=== PATIENT | female | born 1955 | race Caucasian/White ===

== ENCOUNTER 2017-02-19 07:49 | Outpatient (CLI) | payer BC ==
--- NOTE | 2017-02-19 10:49 | CT ---
CT ABDOMEN AND PELVIS WITH IV CONTRAST: Date: 02/19/17 HISTORY: Parastomal hernia. History of colorectal cancer. Patient is having pain around colostomy site. Patien t is post chemotherapy and radiation. COMPARISON: 09/21/16. FINDINGS: Lung bases are clear without evidence of a pulmonary nodule. The liver, spleen, pancreas, bilateral a drenal glands, kidneys, abdominal aorta, and urinary bladder demonstrate a normal CT appearance. There is evidence of hysterectomy. Left lower quadrant colostomy is present. There is abdominal wall defect at the ostomy site, which ag ain is larger in size compared to the prior study, previously measuring 3.5 cm in maximal dimensions, and now measures 4.6 cm in transverse dimension. Loops of small bowel now extend into this defect wi thout evidence of a bowel obstruction. There is no fluid or fluid collection within the ostomy site h ernia. A stable area of fat necrosis is seen adjacent to the descending colon. There is evidence of hysterectomy. Cecum extends into the lowermost pelvis and there are postsurgical changes in the pelvis related to partial colectomy of the sigmoid colon as well as rectum. There is no evidence of lymphadenopathy. Subcutaneous edema in the soft tissues of the anterior abdomen are no longer visualized. There is sca rring in the anterior subcutaneous soft tissues in the infraumbilical region. There are prominent degenerative changes in the lumbar spine with posterior osteophyte formation vers us calcification of longitudinal ligaments at multiple levels, findings greatest at the L1-2 level wh ere there is a prominent central calcification resulting in what appears to be severe narrowing of th e central spinal canal. Similar finding is seen at the L2-3, as well as the L3-4 levels. However, thi s is stable from prior exam. IMPRESSION: 1. No acute findings in the abdomen or pelvis. 2. Left lower quadrant colostomy. The colostomy site defect is larger in size and loops of small bow el now extend into the defect, but there is no evidence of a bowel obstruction. 3. Postsurgical changes related to hysterectomy, as well as removal of the rectum. 4. No evidence of lymphadenopathy. 5. Prominent degenerative changes in the lumbar spine. POS: [facility]
== END 2017-02-19 07:50 | disposition home or self-care (01) ==
LOC: CT 07:49
PROVIDERS: ATTEND Surgery
DX: K43.5 Parastomal hernia without obstruction or gangrene (principal); M47.816 Spondylosis without myelopathy or radiculopathy, lumbar region; Z93.3 Colostomy status; Z90.710 Acquired absence of both cervix and uterus
CPT/HCPCS: 74177

== ENCOUNTER 2017-02-24 13:47 | Inpatient (IN) | payer BC ==
[2017-02-24 15:14] LABS: #Eosinphils 0.1 thou/uL (0.0-0.7); #Lymphocytes 1.6 thou/uL (1.20-3.40); #Monocytes 0.9 thou/uL (0.11-0.59); #Neutrophils 9.9 thou/uL (1.40-6.50); %Basophils 0.1 % (0.0-1.0); %Eosinophils 0.7 % (0.0-10.0); %Lymphocytes 12.6 % (21.0-51.0); %Monocytes 6.9 % (0.0-10.0); Hematocrit 45.1 % (36.0-47.0); Mean Platelet Volume 6.3 fL (7.4-10.4); Red Blood Cell (RBC) Count 5.03 mill/uL (4.20-5.40); White Blood Cell (WBC) Count 12.5 thou/uL (4.8-10.8)
[2017-02-24 15:21] LABS: Prothrombin Time 13.6 SEC (12.0-14.7)
[2017-02-24 15:22] LABS: PTT 28.9 SEC (22.9-36.1)
[2017-02-24 15:37] LABS: ALT (SGPT) 23 U/L (8-55); AST (SGOT) 22 U/L (5-34); Alkaline Phosphatase 110 U/L (40-150); Anion Gap 16 mmol/L (10-20); BUN (Urea Nitrogen) 13 mg/dL (9.8-20.1); Bilirubin, Total 0.5 mg/dL (0.2-1.2); Calc. Creatinine Clearance 0 mL/min (70-130); Carbon Dioxide 20 mmol/L (23-31); Chloride 104 mmol/L (98-107); Estimated GFR-MDRD 77; Globulin 3.5 g/dL (2.4-3.5); Protein, Total 7.7 g/dL (6.0-8.3)
[2017-02-24] MEDS ORDERED: Morphine 4 MG/ML VIAL SLOW IVP PRN (17:30)
[2017-02-24 17:46] VITALS: BMI 43.0
[2017-02-24] MEDS: 1/2 NS w/KCL 20 mEq 1,000 ML IV SCH (19:19)
[2017-02-25] MEDS: 1/2 NS w/KCL 20 mEq 1,000 ML IV SCH ×2 (07:46→13:49)
[2017-02-25] MEDS ORDERED: Levofloxacin 500 mg/D5W 100 ml Premix Bag ONE (11:55)
[2017-02-25] MEDS ORDERED: Bupivacaine/Epinephrine 0.25% 30 ML VIAL ONE (11:58)
[2017-02-25] MEDS ORDERED: Lidocaine 2% PF 5 ML VIAL ONE (11:58)
[2017-02-25] MEDS ORDERED: Fentanyl 100 MCG/2 ML VIAL ONE (12:17)
[2017-02-25] MEDS ORDERED: HYDROmorphone 0.5 MG/0.5 ML SYRINGE ONE (12:17)
[2017-02-25] MEDS ORDERED: Lidocaine 1% (PF) 30 ML VIAL ONE (12:17)
[2017-02-25] MEDS ORDERED: Midazolam HCl 2 mg/2 ml Vial ONE (12:17)
[2017-02-25] MEDS ORDERED: Promethazine HCl 25 MG/ML VIAL SLOW IVP PRN (13:54)
[2017-02-25] MEDS ORDERED: diphenhydrAMINE 50 MG/ML VIAL IM PRN (13:54)
[2017-02-25] MEDS ORDERED: Promethazine HCl 25 MG/ML VIAL IM PRN ×3 (13:54→14:52)
[2017-02-25] MEDS ORDERED: HYDROmorphone 10 mg/100 ml CADD IVPB PRN (13:54)
[2017-02-25] MEDS ORDERED: diphenhydrAMINE 25 MG CAP PO PRN (13:54)
[2017-02-25] MEDS ORDERED: Zolpidem Tartrate 5 MG TAB PO PRN (13:54)
[2017-02-25] MEDS ORDERED: Ondansetron HCl/PF 4 MG/2 ML Vial IVP PRN ×3 (13:54→14:52)
[2017-02-25] MEDS ORDERED: Naloxone HCl 0.4 mg/ml Vial IV PRN (13:54)
[2017-02-25] MEDS ORDERED: diphenhydrAMINE 50 MG/ML VIAL IVP PRN (13:54)
[2017-02-25] MEDS ORDERED: Communication Order-Pharmacy FS SCH (14:00)
[2017-02-25] MEDS ORDERED: hydrALAZINE 20 MG/ML VIAL SLOW IVP PRN (14:52)
[2017-02-25] MEDS ORDERED: Promethazine HCl 25 MG/ML VIAL ONE (15:52)
--- NOTE | 2017-02-25 16:23 | RAD ---
AP VIEW OF THE CHEST: INDICATION: Central line placement. COMPARISON: Prior exam dated 07/13/16. FINDINGS: There is a new right subclavian central venous catheter projecting in the region of the right atrium. There is cardiomegaly and pulmonary vascular congestion with perihilar edema. No pneumothorax is g rossly evident. IMPRESSION: 1. Cardiomegaly with pulmonary vascular congestion and mild central edema. 2. New right subclavian central venous catheter without evidence of pneumothorax. The tip of the ca theter is seen within the right atrium. POS: [facility]
[2017-02-25] MEDS ORDERED: Ondansetron HCl/PF 4 MG/2 ML Vial ONE (16:24)
[2017-02-25] MEDS ORDERED: Glycopyrrolate 0.2 MG/ML 5 ML SYRINGE ONE (16:24)
[2017-02-25] MEDS ORDERED: Ketorolac Tromethamine 30 MG/ML VIAL ONE (16:24)
[2017-02-25] MEDS ORDERED: Dexamethasone 20 MG/5 ML VIAL ONE (16:24)
[2017-02-25] MEDS ORDERED: Propofol 200 MG/20 ML VIAL ONE (16:24)
[2017-02-25] MEDS ORDERED: Lidocaine 1% PF 5 ML VIAL ONE (16:24)
[2017-02-25] MEDS: Sodium Chloride 0.9% 1,000 ML IV SCH (17:38)
[2017-02-25] MEDS: Acetaminophen 1,000 MG in Premix Bag 1 BAG IVPB SCH (17:39)
[2017-02-25] MEDS: Ketorolac Tromethamine 30 MG/ML VIAL IVP SCH (17:39)
[2017-02-25] MEDS: metroNIDAZOLE 500 MG in Premix Bag 1 BAG IVPB SCH (17:40)
[2017-02-25] MEDS: Clindamycin/D5W 900 MG in Premix Bag 1 BAG IVPB SCH (17:40)
[2017-02-25] MEDS ORDERED: Acetaminophen 1,000 MG in Premix Bag 1 BAG IVPB SCH (18:00)
--- NOTE | 2017-02-25 20:38 | OP ---
PREOPERATIVE DIAGNOSIS: Recurrent parastomal hernia. SURGEON: Gabo Hall M.D. PROCEDURE PERFORMED: Exploratory laparotomy, lysis of adhesions, recurrent parastomal hernia repair with mesh, central line placement. INDICATIONS: A 61-year-old female morbidly obese, who has had an abdominoperineal resection for rect al cancer 14 years ago. Because of her morbid obesity, she has had 4 parastomal hernias in June, ab out 9 months ago. She had repair by moving the colostomy to a different location, but it still recur red. She has been having a lot of pain and a CT scan showed bowel with small bowel incarcerated. FINDINGS: Very dense adhesions. The small bowel was reduced and the hernia was repaired with a 15 x 15 cm Proceed mesh dot lake. DESCRIPTION OF PROCEDURE: After informed consent was obtained, the patient was taken to the operatin g room and given general endotracheal anesthesia, placed in the supine position. Her chest and neck were prepped and draped in the usual fashion. An introducer needle was inserted in left subclavian. I could not get backflow of blood, so I moved to the right side where I got good backflow of venous blood. J-wire threaded easily. The skin was incised with an 11 blade. The subcutaneous was dilated . The pre-flushed triple lumen catheter inserted over the wire. The wire was removed. Each of the ports aspirated. Good backflow of venous blood, flushed with saline. Sutured in place with 3-0 silk suture. Sterile bandage applied. The patient tolerated the procedure well. Then, her abdomen was prepped and draped in the usual fashion. A midline incision was performed. The subcu divided sharpl y. The fascia incised and lysis of adhesions was performed sharply with Metzenbaum scissors, freed u p the anterior abdominal wall to the ostomy around the ostomy extremely thick dense adhesions, so it was just a careful slow process of lysis of these adhesions utilizing electrocautery, blunt dissectio n and Metzenbaum scissors. Eventually, I was able to get all the way around the ostomy itself and en circled it with a large [place] drain. I was able to make sure that there was no small bowel left in the hernia and dissected everything circumferentially including some abdominal wall in order place t he mesh. A 15 x 15 cm piece of mesh was fashioned and a center dot lake was cut out. The mesh was hyd rated and then inserted intra-abdominally and encircled the ostomy. It was sutured in place circumfe rentially utilizing 2-0 silk sutures. Then, it was sutured circumferentially to the bowel on the inn er dot lake with interrupted 2-0 silk sutures. Hemostasis was assured. The abdomen was thoroughly irr igated and irrigation fluid removed and the omentum placed anterior. The fascia closed with a runnin g looped #1 PDS with interrupted 0 Prolene suture. Subcutaneous was irrigated, hemostasis assured. Subcutaneous reapproximated with interrupted 3-0 Vicryl and the skin closed with skin arnav. Steri le bandage was applied. Prior to the prep, I had done a pursestring on the ostomy that pursestring w as removed and new wafer and appliance were placed. The mucosa looked healthy.
[2017-02-25] MEDS: Famotidine/PF 20 mg/2ml Vial SLOW IVP SCH (22:02)
[2017-02-26] MEDS: Famotidine 20 MG TAB PO SCH ×2 (00:21→10:04)
[2017-02-26] MEDS: Acetaminophen 1,000 MG in Premix Bag 1 BAG IVPB SCH ×3 (00:26→10:59)
[2017-02-26] MEDS: Clindamycin/D5W 900 MG in Premix Bag 1 BAG IVPB SCH ×2 (00:27→05:43)
[2017-02-26] MEDS: metroNIDAZOLE 500 MG in Premix Bag 1 BAG IVPB SCH ×2 (00:27→05:42)
[2017-02-26] MEDS: Ketorolac Tromethamine 30 MG/ML VIAL IVP SCH ×5 (00:29→23:57)
[2017-02-26] MEDS: 1/2 NS w/KCL 20 mEq 1,000 ML IV SCH ×2 (00:36→07:40)
[2017-02-26] MEDS: Sodium Chloride 0.9% 1,000 ML IV SCH ×3 (02:38→15:36)
[2017-02-26 06:25] LABS: Anion Gap 10 mmol/L (10-20); BUN (Urea Nitrogen) 11 mg/dL (9.8-20.1); Calc. Creatinine Clearance 162 mL/min (70-130); Calcium 8.6 mg/dL (7.8-10.44); Carbon Dioxide 26 mmol/L (23-31); Chloride 105 mmol/L (98-107); Estimated GFR-MDRD 80
[2017-02-26 06:53] LABS: #Lymphocytes 0.9 thou/uL (1.20-3.40); #Neutrophils 9.6 thou/uL (1.40-6.50); %Basophils 0.3 % (0.0-1.0); %Eosinophils 0.3 % (0.0-10.0); %Lymphocytes 7.3 % (21.0-51.0); %Monocytes 8.9 % (0.0-10.0); Hematocrit 38.7 % (36.0-47.0); Mean Platelet Volume 6.6 fL (7.4-10.4); Red Blood Cell (RBC) Count 4.32 mill/uL (4.20-5.40); White Blood Cell (WBC) Count 11.6 thou/uL (4.8-10.8)
[2017-02-26] MEDS ORDERED: Enoxaparin Sodium 40 MG/0.4 ML SYRINGE SC SCH ×2 (09:00→10:00)
[2017-02-26] MEDS: Famotidine/PF 20 mg/2ml Vial SLOW IVP SCH ×2 (09:51→21:26)
[2017-02-26] MEDS ORDERED: Sodium Chloride 0.9% 1,000 ML IV SCH (13:15)
[2017-02-27] MEDS: Famotidine 20 MG TAB PO SCH ×3 (02:03→20:57)
[2017-02-27] MEDS: Sodium Chloride 0.9% 1,000 ML IV SCH ×3 (02:08→18:02)
[2017-02-27] MEDS: Ketorolac Tromethamine 30 MG/ML VIAL IVP SCH ×3 (07:02→17:53)
[2017-02-27] MEDS: 1/2 NS w/KCL 20 mEq 1,000 ML IV SCH ×3 (08:04→23:33)
[2017-02-27] MEDS: Famotidine/PF 20 mg/2ml Vial SLOW IVP SCH ×2 (08:17→20:58)
[2017-02-27] MEDS: Enoxaparin Sodium 40 MG/0.4 ML SYRINGE SC SCH (08:17)
--- NOTE | 2017-02-27 11:59 | ULT ---
BILATERAL UPPER EXTREMITY VENOUS ULTRASOUND: Date: 02/27/17 INDICATION: Right upper extremity edema. History of left side deep venous thrombosis. FINDINGS: Imaged deep vein system of each upper extremity reveals appropriate compression and flow without evid ence of deep venous thrombosis. IMPRESSION: No deep venous thrombosis of either visualized upper extremity. POS: [facility]
--- NOTE | 2017-02-27 15:40 | EKG ---
Test Reason : Blood Pressure : / mmHG Vent. Rate : 083 BPM Atrial Rate : 083 BPM P-R Int : 166 ms QRS Dur : 076 ms QT Int : 382 ms P-R-T Axes : 055 -30 020 degrees QTc Int : 448 ms Normal sinus rhythm Left axis deviation Minimal voltage criteria for LVH, may be normal variant Abnormal ECG Confirmed by RAJEEV SEBASTIAN D.O. ([id number]), design editor BONILLA DE LA ROSA ([id number]) on 02/27/2017 3:39:45 PM Referred By: Confirmed By:RAJEEV SEBASTIAN D.O.
[2017-02-28] MEDS: Sodium Chloride 0.9% 1,000 ML IV SCH ×3 (01:54→17:09)
[2017-02-28] MEDS: Famotidine 20 MG TAB PO SCH ×2 (09:06→19:32)
[2017-02-28] MEDS: Famotidine/PF 20 mg/2ml Vial SLOW IVP SCH ×2 (09:06→19:32)
[2017-02-28] MEDS: Enoxaparin Sodium 40 MG/0.4 ML SYRINGE SC SCH (09:07)
[2017-02-28] MEDS: 1/2 NS w/KCL 20 mEq 1,000 ML IV SCH (11:08)
[2017-02-28] MEDS ORDERED: 1/2 NS w/KCL 20 mEq 1,000 ML IV SCH (11:28)
[2017-02-28] MEDS ORDERED: Docusate 100 MG CAP PO PRN (12:00)
[2017-02-28] MEDS ORDERED: Polyethylene Glycol 3350 17 GM Packet PO SCH (12:00)
--- NOTE | 2017-02-28 16:49 | PRG ---
DATE OF SERVICE: 02/28/2017 SUBJECTIVE: Ms. Sim is feeling alright today. She did have some bloating and fullness feelin g earlier today and has not had any further bowel movements since yesterday and she had one very smal l one. She is still passing some gas, but not as much as she was yesterday. She is afebrile with normal vital signs except for occasional elevation in her blood pressure. Her a bdomen is soft and nontender but slightly more distended than yesterday. Colostomy appears healthy. There is no stool in the bag. Bowel sounds are difficult to appreciate due to body habitus. Her dr suresh was just changed by nursing and by the report, it was clean. ASSESSMENT: Status post ileocolostomy, revision repair of parastomal hernia with mesh. Bowel functi on is improving, but not yet back to normal. We will put her back on a full liquid diet and restart some stool softeners and laxatives which she was taking prehospital. She was encouraged to ambulate frequently which she has been doing.
[2017-02-28] MEDS: Docusate 100 MG CAP PO SCH (19:32)
[2017-03-01] MEDS: Sodium Chloride 0.9% 1,000 ML IV SCH ×3 (03:53→20:03)
[2017-03-01] MEDS: Enoxaparin Sodium 40 MG/0.4 ML SYRINGE SC SCH (08:51)
[2017-03-01] MEDS: Polyethylene Glycol 3350 17 GM Packet PO SCH (08:51)
[2017-03-01] MEDS: Famotidine 20 MG TAB PO SCH ×2 (08:51→20:02)
[2017-03-01] MEDS: Docusate 100 MG CAP PO SCH ×2 (08:51→20:02)
[2017-03-01] MEDS: Famotidine/PF 20 mg/2ml Vial SLOW IVP SCH ×2 (08:52→20:02)
[2017-03-01] MEDS ORDERED: HYDROcodone/Acetaminophen 5/325 mg Tablet PO PRN ×2 (16:15)
[2017-03-01] MEDS ORDERED: Fleet Enema 133 ML BOT FS SCH (16:30)
[2017-03-01] MEDS ORDERED: Acetaminophen 325 MG TAB PO SCH (18:00)
[2017-03-01] MEDS ORDERED: Acetaminophen 325 MG TAB PO PRN (19:32)
[2017-03-02] MEDS: Sodium Chloride 0.9% 1,000 ML IV SCH (03:32)
[2017-03-02] MEDS: Famotidine 20 MG TAB PO SCH (09:24)
[2017-03-02] MEDS: Polyethylene Glycol 3350 17 GM Packet PO SCH (09:24)
[2017-03-02] MEDS: Docusate 100 MG CAP PO SCH (09:24)
[2017-03-02] MEDS: Enoxaparin Sodium 40 MG/0.4 ML SYRINGE SC SCH (09:28)
[2017-03-02] MEDS ORDERED: Enoxaparin Sodium 40 MG/0.4 ML SYRINGE SC SCH (09:30)
[2017-03-02] MEDS: Famotidine/PF 20 mg/2ml Vial SLOW IVP SCH (09:31)
[2017-03-02 12:21] VITALS: TEMP 98.6
--- NOTE | 2017-03-02 14:25 | DIS ---
DISCHARGE DIAGNOSIS: Recurrent parastomal hernia. PROCEDURES DURING ADMISSION: Central line placement, open repair of parastomal hernia with mesh. HOSPITAL COURSE: The patient was admitted, taken to the operating room where she underwent repair wi th mesh. Postoperatively, she had an ileus. Her bowel function returned, her diet advanced. She is now tolerating a regular diet, bowels are working well. She is afebrile. Pain is controlled on hyd rocodone. She will follow up with me in 2 weeks.
[2017-03-02 16:03] VITALS: BP 130/63
== END 2017-03-02 16:24 | disposition home or self-care (01) | DRG 336 ==
LOC: ERS 13:47 → SURG A 14:39
PROVIDERS: ADMIT Internal Medicine; ATTEND Internal Medicine
PROC: 0WUF0JZ Supplement Abdominal Wall with Synthetic Substitute, Open Approach (ICD-10-PCS; principal; 2017-02-24)
PROC: 0DN80ZZ Release Small Intestine, Open Approach (ICD-10-PCS; 2017-02-24)
PROC: 02H633Z Insertion of Infusion Device into Right Atrium, Percutaneous Approach (ICD-10-PCS; 2017-02-24)
PROC: 05JY3ZZ Inspection of Upper Vein, Percutaneous Approach (ICD-10-PCS; 2017-02-24)
DX: K43.3 Parastomal hernia with obstruction, without gangrene (principal); Z68.41 Body mass index [BMI] 40.0-44.9, adult; K56.7 Ileus, unspecified; E66.01 Morbid (severe) obesity due to excess calories; K66.0 Peritoneal adhesions (postprocedural) (postinfection); Z90.49 Acquired absence of other specified parts of digestive tract; Z85.048 Personal history of other malignant neoplasm of rectum, rectosigmoid junction, and anus; Z86.718 Personal history of other venous thrombosis and embolism; Z88.0 Allergy status to penicillin
CPT/HCPCS: 71010; 80048; 80053; 85025; 85610; 85730; 93005; 93970; J0131; J1100; J1170; J1200; J1650; J1885; J1956; J2001; J2250; J2270; J2405; J2550; J2704; J3010; J3490; S0028

== ENCOUNTER 2017-03-05 00:16 | Emergency (ER) | payer BC ==
[2017-03-05] MEDS ORDERED: Morphine 4 MG/ML VIAL ONE ×2 (01:19→01:26)
[2017-03-05 01:23] LABS: #Eosinphils 0.2 thou/uL (0.0-0.7); #Lymphocytes 1.2 thou/uL (1.20-3.40); #Monocytes 0.9 thou/uL (0.11-0.59); #Neutrophils 9.7 thou/uL (1.40-6.50); %Eosinophils 1.4 % (0.0-10.0); %Lymphocytes 9.8 % (21.0-51.0); %Monocytes 7.6 % (0.0-10.0); Hematocrit 40.5 % (36.0-47.0); Mean Platelet Volume 6.1 fL (7.4-10.4); Red Blood Cell (RBC) Count 4.52 mill/uL (4.20-5.40)
[2017-03-05 01:28] LABS: Prothrombin Time 13.3 SEC (12.0-14.7)
[2017-03-05 01:44] LABS: ALT (SGPT) 20 U/L (8-55); AST (SGOT) 14 U/L (5-34); Alkaline Phosphatase 113 U/L (40-150); Anion Gap 12 mmol/L (10-20); BUN (Urea Nitrogen) 13 mg/dL (9.8-20.1); Bilirubin, Total 0.5 mg/dL (0.2-1.2); Calc. Creatinine Clearance 0 mL/min (70-130); Calcium 10.2 mg/dL (7.8-10.44); Carbon Dioxide 28 mmol/L (23-31); Chloride 102 mmol/L (98-107); Estimated GFR-MDRD 72; Globulin 3.5 g/dL (2.4-3.5); Magnesium 1.9 mg/dL (1.6-2.6); Protein, Total 7.4 g/dL (6.0-8.3)
[2017-03-05 01:47] LABS: Troponin I Less than 0.010 ng/mL (< 0.028)
--- NOTE | 2017-03-05 07:43 | CT ---
PRELIMINARY REPORT/[facility]/EMERGENCY AFTER HOURS PROCEDURE: EXAM: CT Angiography Chest With Intravenous Contrast EXAM DATE/TIME: Exam ordered 03/05/2017 2:02 AM CLINICAL HISTORY: 62 years old, female; Pain; Other: Rt shoulder; Patient HX: [id number] presents to ed for right shoulder koby n. Pt reports abdominal surgery on 02/25 during which she had a right sided central line placed and re ports she was discharged from the hospital on wednesday. Pt reports the entire time she was in the hosp ital the central line leaked. Pt reports right shoulder pain that started mid afternoon today and is so bad that it hurts to breathe. Pt denies fever, cough, diaphoresis, or SOB. Pt denies any calf pain . Pt reports HX of blood clot. Pt reports she has never had a stress test done. Pt reports taking Tylen ol at 8pm TECHNIQUE: Axial computed tomographic angiography images of the chest with intravenous contrast using pulmonary embolism protocol. COMPARISON: No relevant prior studies available. FINDINGS: Pulmonary arteries: Unremarkable. No pulmonary embolism. Aorta: No acute findings. No thoracic aortic aneurysm. Lungs: Mild bronchiolitis in the right lung apex. The lungs are otherwise clear aside from mild bibas ilar dependent subsegmental atelectasis. No mass. Pleural space: Unremarkable. No significant effusion. No pneumothorax. Heart: Unremarkable. No cardiomegaly. No significant pericardial effusion. No evidence of RV dysfunct ion. Bones/joints: No acute fracture. No dislocation. Soft tissues: Unremarkable. Lymph nodes: Unremarkable. No enlarged lymph nodes. Spleen: Splenomegaly. IMPRESSION: 1. Splenomegaly. 2. Mild bronchiolitis in the right lung apex. Thank you for allowing us to participate in the care of your patient. Dictated and Authenticated by: Joseph Wagner MD 03/05/2017 2:43 AM Central Time ([place] & [place]) FINAL REPORT: CTA OF CHEST WITH 3D VOLUME RENDERING: FINDINGS/IMPRESSION: I agree with the above-provided preliminary interpretation. No acute pulmonary embolus. Additional details as described above.
[2017-03-05] MEDS ORDERED: ISOVUE-370 76%-LOCM 1 ML ONE (17:23)
== END 2017-03-05 03:41 | disposition home or self-care (01) ==
LOC: ERS 00:16
DX: J21.9 Acute bronchiolitis, unspecified (principal); R07.89 Other chest pain; E66.9 Obesity, unspecified; Z85.038 Personal history of other malignant neoplasm of large intestine
CPT/HCPCS: 71275; 80053; 82553; 83735; 84484; 85025; 85610; 93005; 96361; 96374; J2270

== ENCOUNTER 2018-05-11 07:38 | Outpatient (CLI) | payer BC ==
--- NOTE | 2018-05-11 09:53 | ULT ---
RIGHT UPPER QUADRANT ULTRASOUND: Date: 05-11-18 Provided Clinical History: Abnormal LFTs. FINDINGS: Examination is limited by patient body habitus. The visualized portions of the IVC and pancreas appea r normal. The liver demonstrates some inhomogeneous echotexture without focal mass and demonstrates i ncreased echogenicity relative to the right kidney. There is no definite evidence for intrahepatic bi liary ductal dilatation. Partially visualized gallbladder demonstrates no stones, wall thickening or pericholecystic fluid. The common duct is not visualized. Right kidney demonstrates no evidence for h ydronephrosis or mass. IMPRESSION: 1. Limited study. 2. Findings suggesting fatty infiltration of the liver. POS: [facility]
== END 2018-05-11 07:39 | disposition home or self-care (01) ==
LOC: ULT 07:38
PROVIDERS: ATTEND Internal Medicine Gastroenterology
DX: R94.5 Abnormal results of liver function studies (principal); C18.9 Malignant neoplasm of colon, unspecified; K56.609 Unspecified intestinal obstruction, unspecified as to partial versus complete obstruction
CPT/HCPCS: 76705

== ENCOUNTER 2018-05-11 09:59 | Emergency (ER) | payer BC ==
[2018-05-11 10:44] LABS: #Basophils 0.1 thou/uL (0.0-0.2); #Eosinphils 0.1 thou/uL (0.0-0.7); #Lymphocytes 1.2 thou/uL (1.20-3.40); #Monocytes 0.5 thou/uL (0.11-0.59); %Basophils 0.8 % (0.0-1.0); %Lymphocytes 15.3 % (21.0-51.0); %Monocytes 6.6 % (0.0-10.0); %Neutrophils 76.2 % (42.0-75.0); Hemoglobin 13.8 g/dL (12.0-16.0); Mean Corpuscular HGB CONC 32.4 g/dL (32.0-36.0); Mean Corpuscular Hemoglobin 28.8 pg (27.0-31.0); Mean Corpuscular Volume 88.7 fL (78.0-98.0); Mean Platelet Volume 6.5 fL (7.4-10.4); Platelet Count 216 thou/uL (130-400); RBC Distribution Width 12.7 % (11.5-14.5); White Blood Cell (WBC) Count 7.8 thou/uL (4.8-10.8)
[2018-05-11 11:04] LABS: ALT (SGPT) 20 U/L (8-55); AST (SGOT) 20 U/L (5-34); Albumin 4.1 g/dL (3.4-4.8); Alkaline Phosphatase 106 U/L (40-150); Anion Gap 13 mmol/L (10-20); BUN (Urea Nitrogen) 10 mg/dL (9.8-20.1); Bilirubin, Total 0.4 mg/dL (0.2-1.2); CK (CPK) 68 U/L (29-168); Calc. Creatinine Clearance 0 mL/min (70-130); Calcium 9.9 mg/dL (7.8-10.44); Carbon Dioxide 26 mmol/L (23-31); Chloride 102 mmol/L (98-107); Estimated GFR-MDRD 70; Globulin 3.2 g/dL (2.4-3.5); Glucose 172 mg/dL (80-115); Potassium 4.4 mmol/L (3.5-5.1); Protein, Total 7.3 g/dL (6.0-8.3); Sodium 137 mmol/L (136-145)
[2018-05-11] MEDS ORDERED: Meclizine HCl 25 MG TAB ONE (13:41)
[2018-05-11] MEDS ORDERED: Metoclopramide HCl 10 MG/2 ML VIAL ONE (13:41)
--- NOTE | 2018-05-14 20:32 | EKG ---
Test Reason : Blood Pressure : / mmHG Vent. Rate : 078 BPM Atrial Rate : 078 BPM P-R Int : 150 ms QRS Dur : 070 ms QT Int : 386 ms P-R-T Axes : 026 -33 -01 degrees QTc Int : 440 ms Normal sinus rhythm Left axis deviation Abnormal ECG Confirmed by CLEMENTINA SAMANIEGO ([id number]), manuscript editor BONILLA DE LA ROSA ([id number]) on 05/14/2018 8:31:28 PM Referred By: Confirmed By:CLEMENTINA SAMANIEGO
== END 2018-05-11 15:01 | disposition home or self-care (01) ==
LOC: ERS 09:59
DX: R55 Syncope and collapse (principal); E11.9 Type 2 diabetes mellitus without complications; E66.9 Obesity, unspecified; Z79.84 Long term (current) use of oral hypoglycemic drugs
CPT/HCPCS: 36415; 36416; 76705; 80053; 82550; 84484; 85025; 93005; 96365; J2765

== ENCOUNTER 2019-04-10 03:43 | Emergency (ER) | payer BC ==
[2019-04-10] MEDS ORDERED: Ondansetron PF 4 MG/2 ML Vial ONE (04:22)
[2019-04-10] MEDS ORDERED: Morphine 4 MG/ML VIAL ONE (04:22)
[2019-04-10 04:43] LABS: #Eosinphils 0.1 thou/uL (0.0-0.7); #Monocytes 0.6 thou/uL (0.11-0.59); #Neutrophils 8.9 thou/uL (1.40-6.50); %Basophils 0.3 % (0.0-1.0); %Eosinophils 0.7 % (0.0-10.0); %Lymphocytes 9.8 % (21.0-51.0); %Monocytes 5.3 % (0.0-10.0); %Neutrophils 83.9 % (42.0-75.0); Hemoglobin 14.6 g/dL (12.0-16.0); Mean Corpuscular HGB CONC 32.1 g/dL (32.0-36.0); Mean Corpuscular Hemoglobin 27.8 pg (27.0-31.0); Mean Corpuscular Volume 86.4 fL (78.0-98.0); Mean Platelet Volume 6.8 fL (7.4-10.4); Platelet Count 184 thou/uL (130-400); RBC Distribution Width 12.9 % (11.5-14.5); Red Blood Cell (RBC) Count 5.27 mill/uL (4.20-5.40); White Blood Cell (WBC) Count 10.6 thou/uL (4.8-10.8)
[2019-04-10 05:22] LABS: Bilirubin Negative (Negative); Blood, Urine Negative (Negative); Clarity Clear (Clear); Glucose, Urine (Dipstick) >=1000 mg/dL (Negative); Leukocyte 25 Leu/uL (Negative); Nitrite Negative (Negative); Protein, Urine (Dipstick) Negative (Neg-Trace); RBC/HPF 0-3 HPF (0-3); Squamous Epithelial 0-3 HPF (0-3); Urobilinogen Normal mg/dL (Less than 2); WBC/HPF 0-3 HPF (0-3)
[2019-04-10 05:24] LABS: Albumin 4.4 g/dL (3.4-4.8)
[2019-04-10 05:25] LABS: Chloride 101 mmol/L (98-107); Potassium 4.6 mmol/L (3.5-5.1); Sodium 136 mmol/L (136-145)
[2019-04-10 05:26] LABS: Glucose 233 mg/dL (80-115)
[2019-04-10 05:27] LABS: Globulin 2.9 g/dL (2.4-3.5); Protein, Total 7.3 g/dL (6.0-8.3)
[2019-04-10 05:28] LABS: Anion Gap 16 mmol/L (10-20); Bilirubin, Total 0.6 mg/dL (0.2-1.2); Carbon Dioxide 24 mmol/L (23-31)
[2019-04-10 05:29] LABS: Alkaline Phosphatase 144 U/L (40-110)
[2019-04-10 05:30] LABS: Calc. Creatinine Clearance 0 mL/min (70-130); Estimated GFR-MDRD 57
[2019-04-10 05:31] LABS: BUN (Urea Nitrogen) 12 mg/dL (9.8-20.1)
[2019-04-10 05:32] LABS: ALT (SGPT) 32 U/L (8-55); AST (SGOT) 26 U/L (5-34); Lipase 12 U/L (8-78)
[2019-04-10 05:33] LABS: CK (CPK) 84 U/L (29-168)
[2019-04-10 05:35] LABS: Bacteria/HPF 1+ HPF (None Seen)
--- NOTE | 2019-04-10 08:21 | CT ---
PRELIMINARY REPORT/[facility]/EMERGENCY AFTER HOURS PROCEDURE: EXAM: CT Abdomen and Pelvis with Intravenous Contrast CLINICAL HISTORY: REPORTS ABD PAIN THAT FEELS LIKE PAST HERNIAS THAT STARTED YESTERDAY AFTERNOON. Surgical history of h ysterectomy, colon and rectum sx with colostomy, total of 3 hernia repairs TECHNIQUE: Axial computed tomography images of the abdomen and pelvis with intravenous contrast. CONTRAST: With; ISO 370 70ML COMPARISON: None provided. FINDINGS: LUNG BASES: No basilar airspace consolidation or pleural effusion. LIVER: Diffuse hepatic steatosis. GALLBLADDER AND BILE DUCTS: Unremarkable. No calcified stone. No ductal dilation. PANCREAS: Unremarkable. SPLEEN: The spleen is enlarged measuring up to 18.8 cm in craniocaudal dimension. The spleen is borde rline in size measuring up to 12.2 cm in craniocaudal dimension. There is an adjacent splenule. ADRENAL GLANDS: Unremarkable. KIDNEYS, URETERS, AND BLADDER: Unremarkable. No hydronephrosis or nephrolithiasis. No ureteral or vannesa dder calculi. STOMACH AND BOWEL: Left-sided colostomy with a large parastomal hernia containing fat and nondilated loops of small bowel. Large ventral hernia containing and multiple nondilated loops of small bowel wi th a lobulated contour measuring up to 16.2 cm in transverse dimension and with a wide neck measuring up to 8.9 cm. No bowel obstruction. APPENDIX: No CT evidence for appendicitis. PERITONEUM: No free fluid. No free air. LYMPH NODES: No lymphadenopathy. REPRODUCTIVE: Status post hysterectomy. VASCULATURE: No aortic aneurysm. BONES: No fracture or suspicious osseous abnormality. ABDOMINAL WALL AND SOFT TISSUES: See above. IMPRESSION: Left-sided colostomy with a large parastomal hernia containing fat and nondilated loops of small aislinn l. Large ventral hernia containing and multiple nondilated loops of small bowel with a lobulated contour . No bowel obstruction. ELECTRONICALLY SIGNED BY: Eli Vaughn MD Apr 10, 2019 6:30:30 AM [employer] This report is intended for review by the ordering physician only, in accordance of law. If you recei ve this report in error, please call [facility] at [phone]. FINAL REPORT EMERGENCY AFTER HOURS CT ABDOMEN AND PELVIS WITH CONTRAST: FINDINGS/IMPRESSION: I agree with the findings and impression given in the preliminary report per [facility] physici an. The patient has a left parastomal hernia and a ventral hernia in the midline of the abdomen. There is no evidence of bowel obstruction. POS: [facility]
[2019-04-10] MEDS ORDERED: ISOVUE-370 76%-LOCM 1 ML ONE (13:17)
== END 2019-04-10 06:47 | disposition home or self-care (01) ==
LOC: ERS 03:43
DX: R10.9 Unspecified abdominal pain (principal); E11.9 Type 2 diabetes mellitus without complications; R11.0 Nausea; E66.9 Obesity, unspecified; Z79.84 Long term (current) use of oral hypoglycemic drugs; Z79.899 Other long term (current) drug therapy
CPT/HCPCS: 74177; 80053; 81003; 81015; 82550; 83690; 84484; 85025; 93005; 96361; 96374; 96375; J2270; J2405; Q9966

== ENCOUNTER 2021-02-14 08:45 | Inpatient (IN) | payer BC, MEDICARE ==
[2021-02-14] MEDS ORDERED: Morphine 4 MG/ML VIAL ONE (09:09)
[2021-02-14] MEDS ORDERED: Ondansetron PF 4 MG/2 ML Vial ONE (09:09)
[2021-02-14] MEDS ORDERED: MD-Gastroview 120 ML BOT ONE (09:57)
[2021-02-14 10:21] LABS: #Eosinphils 0.1 thou/uL (0.0-0.7); #Lymphocytes 1.1 thou/uL (1.20-3.40); #Monocytes 0.7 thou/uL (0.11-0.59); #Neutrophils 7.2 thou/uL (1.40-6.50); %Lymphocytes 11.6 % (21.0-51.0); %Monocytes 8.1 % (0.0-10.0); %Neutrophils 79.4 % (42.0-75.0); Hemoglobin 15.2 g/dL (12.0-16.0); Mean Corpuscular HGB CONC 34.3 g/dL (32.0-36.0); Mean Corpuscular Volume 87.5 fL (78.0-98.0); Mean Platelet Volume 6.4 fL (7.4-10.4); Platelet Count 184 thou/uL (130-400); RBC Distribution Width 12.8 % (11.5-14.5); Red Blood Cell (RBC) Count 5.06 mill/uL (4.20-5.40); White Blood Cell (WBC) Count 9.1 thou/uL (4.8-10.8)
[2021-02-14 10:46] LABS: AST (SGOT) 32 U/L (5-34); Bilirubin, Total 0.5 mg/dL (0.2-1.2); Calcium 9.6 mg/dL (7.8-10.44); Chloride 100 mmol/L (98-107); Potassium 4.1 mmol/L (3.5-5.1); Sodium 135 mmol/L (136-145)
[2021-02-14 10:58] LABS: ALT (SGPT) 40 U/L (8-55); Alkaline Phosphatase 98 U/L (40-110); Anion Gap 14 mmol/L (10-20); BUN (Urea Nitrogen) 12 mg/dL (9.8-20.1); Calc. Creatinine Clearance 0 mL/min (70-130); Carbon Dioxide 24 mmol/L (23-31); Globulin 3.8 g/dL (2.4-3.5); Glucose 157 mg/dL (80-115); Lipase 10 U/L (8-78); Protein, Total 7.8 g/dL (5.8-8.1)
[2021-02-14] MEDS ORDERED: Lidocaine 4% Topical Sol 50 ML BOT ONE (12:36)
[2021-02-14] MEDS ORDERED: Oxymetazoline HCl 0.05% (30 ML BOT) ONE (12:36)
[2021-02-14] MEDS ORDERED: Benzocaine 20% Spray 60 ML CAN ONE (12:38)
[2021-02-14] MEDS ORDERED: Midazolam HCl 2 mg/2 ml Vial ONE (12:52)
[2021-02-14] MEDS ORDERED: Morphine 2 MG/ML VIAL SLOW IVP PRN (14:44)
[2021-02-14] MEDS ORDERED: Dextrose 50% Abboject 50 ML SYRINGE SLOW IVP PRN (14:44)
[2021-02-14] MEDS ORDERED: Morphine 4 MG/ML VIAL SLOW IVP PRN (14:44)
[2021-02-14] MEDS ORDERED: HumaLOG 300 UNITS/3 ML VIAL SC PRN (14:44)
[2021-02-14] MEDS ORDERED: Dextrose 5% in Water 1,000 ML IV PRN (14:44)
[2021-02-14] MEDS ORDERED: Ondansetron PF 4 MG/2 ML Vial IVP PRN (14:44)
[2021-02-14] MEDS: Sodium Chloride 0.9% 1,000 ML IV SCH (16:55)
[2021-02-14 17:47] VITALS: BMI 42.7
[2021-02-14] MEDS: Famotidine/PF 20 mg/2ml Vial SLOW IVP SCH (20:49)
[2021-02-14] MEDS: Enoxaparin Sodium 40 MG/0.4 ML SYRINGE SC SCH (20:50)
[2021-02-15] MEDS: Sodium Chloride 0.9% 1,000 ML IV SCH ×3 (01:14→16:40)
[2021-02-15 06:35] LABS: #Eosinphils 0.1 thou/uL (0.0-0.7); #Lymphocytes 1.3 thou/uL (1.20-3.40); #Monocytes 0.6 thou/uL (0.11-0.59); #Neutrophils 5.4 thou/uL (1.40-6.50); %Eosinophils 1.4 % (0.0-10.0); %Lymphocytes 17.3 % (21.0-51.0); %Monocytes 8.6 % (0.0-10.0); %Neutrophils 72.7 % (42.0-75.0); Hemoglobin 13.3 g/dL (12.0-16.0); Mean Corpuscular HGB CONC 33.9 g/dL (32.0-36.0); Mean Corpuscular Hemoglobin 29.9 pg (27.0-31.0); Mean Corpuscular Volume 88.1 fL (78.0-98.0); Mean Platelet Volume 6.3 fL (7.4-10.4); Platelet Count 174 thou/uL (130-400); RBC Distribution Width 12.9 % (11.5-14.5); Red Blood Cell (RBC) Count 4.47 mill/uL (4.20-5.40); White Blood Cell (WBC) Count 7.5 thou/uL (4.8-10.8)
[2021-02-15 06:52] LABS: Anion Gap 11 mmol/L (10-20); BUN (Urea Nitrogen) 10 mg/dL (9.8-20.1); Calc. Creatinine Clearance 153 mL/min (70-130); Calcium 9.2 mg/dL (7.8-10.44); Carbon Dioxide 27 mmol/L (23-31); Chloride 103 mmol/L (98-107); Glucose 137 mg/dL (80-115); Phosphorus 2.9 mg/dL (2.3-4.7); Potassium 3.8 mmol/L (3.5-5.1); Sodium 137 mmol/L (136-145)
[2021-02-15] MEDS: Famotidine/PF 20 mg/2ml Vial SLOW IVP SCH ×2 (09:17→22:33)
[2021-02-15] MEDS: Enoxaparin Sodium 40 MG/0.4 ML SYRINGE SC SCH (22:32)
[2021-02-16] MEDS: Sodium Chloride 0.9% 1,000 ML IV SCH ×2 (01:11→11:58)
[2021-02-16] MEDS: Famotidine/PF 20 mg/2ml Vial SLOW IVP SCH ×2 (08:45→20:48)
[2021-02-16] MEDS ORDERED: Chloraseptic Spray 180 ml Bottle PO PRN (09:38)
[2021-02-16] MEDS: Lactated Ringer's 1,000 ML IV SCH ×2 (11:03→23:19)
[2021-02-16] MEDS: Ibuprofen 200 MG TAB PO PRN (17:18)
[2021-02-16] MEDS: Enoxaparin Sodium 40 MG/0.4 ML SYRINGE SC SCH (20:48)
[2021-02-17] MEDS: Famotidine/PF 20 mg/2ml Vial SLOW IVP SCH ×2 (08:57→20:59)
[2021-02-17] MEDS: Lactated Ringer's 1,000 ML IV SCH ×2 (12:16→20:59)
[2021-02-17] MEDS ORDERED: EPINEPHrine 1 MG/ML AMP ONE (15:35)
[2021-02-17] MEDS ORDERED: Bupivacaine 0.25% HCL 30 ML VIAL ONE (15:35)
[2021-02-17 16:13] LABS: SARS-CoV-2 NAA Rapid Test Not Detected (NotDetected)
[2021-02-17] MEDS ORDERED: Fentanyl 100 MCG/2 ML VIAL ONE ×4 (16:16→18:53)
[2021-02-17] MEDS ORDERED: Levofloxacin 500 mg/D5W 100 ml Premix Bag ONE (16:28)
[2021-02-17] MEDS ORDERED: Lidocaine 1% PF 5 ML VIAL ONE (16:40)
[2021-02-17] MEDS ORDERED: PHENYLEPHRINE-NS 100 MCG/ML 10 ML SYRINGE ONE (16:40)
[2021-02-17] MEDS ORDERED: PROPOFOL 200 MG/20 ML VIAL ONE (16:40)
[2021-02-17] MEDS ORDERED: Glycopyrrolate 0.2 MG/ML 5 ML SYRINGE ONE (16:40)
[2021-02-17] MEDS ORDERED: Ketorolac Tromethamine 30 MG/ML VIAL ONE (16:40)
[2021-02-17] MEDS ORDERED: Succinylcholine 200 MG/10 ml SYRINGE FS ONE (16:40)
[2021-02-17] MEDS ORDERED: Rocuronium Bromide 10 MG/ML (10ML VIAL) ONE (16:40)
[2021-02-17] MEDS ORDERED: Ondansetron PF 4 MG/2 ML Vial ONE (16:40)
[2021-02-17] MEDS ORDERED: Promethazine HCl 25 MG/ML VIAL IVPB PRN (16:49)
[2021-02-17] MEDS ORDERED: Ondansetron HCl/PF 4 MG/2 ML Vial IVP PRN (16:49)
[2021-02-17] MEDS ORDERED: Promethazine HCl 25 MG/ML VIAL IM PRN ×2 (16:49→18:45)
[2021-02-17] MEDS ORDERED: diphenhydrAMINE 25 MG CAP PO PRN (18:45)
[2021-02-17] MEDS ORDERED: diphenhydrAMINE 50 MG/ML VIAL IM/IV PRN (18:45)
[2021-02-17] MEDS ORDERED: Naloxone HCl 0.4 mg/ml Vial IV PRN (18:45)
[2021-02-17] MEDS ORDERED: Ondansetron PF 4 MG/2 ML Vial IVP PRN (18:45)
[2021-02-17] MEDS ORDERED: Fentanyl CADD 100 ML IVPB SCH (18:45)
[2021-02-17] MEDS ORDERED: Zolpidem Tartrate 5 MG TAB PO PRN (18:45)
[2021-02-17] MEDS ORDERED: Promethazine HCl 25 MG/ML VIAL ONE (18:47)
[2021-02-17] MEDS: Enoxaparin Sodium 40 MG/0.4 ML SYRINGE SC SCH (20:59)
[2021-02-18] MEDS: Lactated Ringer's 1,000 ML IV SCH ×3 (01:08→17:12)
[2021-02-18 06:15] LABS: #Basophils 0.1 thou/uL (0.0-0.2); #Monocytes 0.7 thou/uL (0.11-0.59); #Neutrophils 8.1 thou/uL (1.40-6.50); %Basophils 0.5 % (0.0-1.0); %Eosinophils 0.2 % (0.0-10.0); %Lymphocytes 10.2 % (21.0-51.0); %Monocytes 6.7 % (0.0-10.0); %Neutrophils 82.3 % (42.0-75.0); Hemoglobin 13.1 g/dL (12.0-16.0); Mean Corpuscular HGB CONC 32.8 g/dL (32.0-36.0); Mean Corpuscular Hemoglobin 29.2 pg (27.0-31.0); Mean Corpuscular Volume 89.1 fL (78.0-98.0); Mean Platelet Volume 6.4 fL (7.4-10.4); Platelet Count 201 thou/uL (130-400); RBC Distribution Width 12.7 % (11.5-14.5); Red Blood Cell (RBC) Count 4.49 mill/uL (4.20-5.40); White Blood Cell (WBC) Count 9.8 thou/uL (4.8-10.8)
[2021-02-18 06:39] LABS: Anion Gap 10 mmol/L (10-20); BUN (Urea Nitrogen) 6 mg/dL (9.8-20.1); Calc. Creatinine Clearance 145 mL/min (70-130); Carbon Dioxide 29 mmol/L (23-31); Chloride 102 mmol/L (98-107); Glucose 160 mg/dL (80-115); Sodium 137 mmol/L (136-145)
[2021-02-18] MEDS: Famotidine/PF 20 mg/2ml Vial SLOW IVP SCH ×2 (08:33→20:59)
[2021-02-18] MEDS ORDERED: DC PCA Order Set 1 EACH FS ONE (12:35)
[2021-02-18] MEDS ORDERED: HYDROcodone/Acetaminophen 7.5/325 mg Tablet PO PRN ×2 (12:35)
[2021-02-18] MEDS ORDERED: Morphine 4 MG/ML VIAL SLOW IVP PRN (12:35)
[2021-02-18] MEDS: Enoxaparin Sodium 40 MG/0.4 ML SYRINGE SC SCH (20:59)
[2021-02-19] MEDS: Lactated Ringer's 1,000 ML IV SCH ×2 (03:36→11:38)
[2021-02-19] MEDS: Famotidine/PF 20 mg/2ml Vial SLOW IVP SCH ×2 (08:36→20:40)
[2021-02-19] MEDS: Ibuprofen 200 MG TAB PO PRN ×2 (08:45→18:23)
[2021-02-19] MEDS: Acetaminophen 325 MG TAB PO PRN ×2 (08:46→18:23)
[2021-02-19] MEDS: Docusate 100 MG CAP PO PRN (16:57)
[2021-02-19] MEDS: Enoxaparin Sodium 40 MG/0.4 ML SYRINGE SC SCH (20:40)
[2021-02-20] MEDS: Famotidine/PF 20 mg/2ml Vial SLOW IVP SCH (08:40)
[2021-02-20] MEDS: Docusate 100 MG CAP PO PRN (08:40)
[2021-02-20] MEDS: Ibuprofen 200 MG TAB PO PRN (08:44)
[2021-02-20 11:35] VITALS: BP 130/82; TEMP 98.2
== END 2021-02-20 11:55 | disposition home or self-care (01) | DRG 336 ==
LOC: ERS 08:45 → SURG A 13:39
PROVIDERS: ADMIT Surgery; ATTEND Surgery
PROC: 0WQF0ZZ Repair Abdominal Wall, Open Approach (ICD-10-PCS; principal; 2021-02-17)
PROC: 0DN80ZZ Release Small Intestine, Open Approach (ICD-10-PCS; 2021-02-17)
DX: K43.0 Incisional hernia with obstruction, without gangrene (principal); K56.50 Intestinal adhesions [bands], unspecified as to partial versus complete obstruction; Z68.41 Body mass index [BMI] 40.0-44.9, adult; Z20.822 Contact with and (suspected) exposure to COVID-19; K43.3 Parastomal hernia with obstruction, without gangrene; E11.9 Type 2 diabetes mellitus without complications; E66.01 Morbid (severe) obesity due to excess calories; Z85.040 Personal history of malignant carcinoid tumor of rectum; Z88.0 Allergy status to penicillin; Z90.710 Acquired absence of both cervix and uterus; Z93.3 Colostomy status
CPT/HCPCS: 36415; 36416; 74177; 74250; 80048; 80053; 83605; 83690; 83735; 84100; 85025; 93005; 96374; 96375; J0171; J1650; J1885; J1956; J2250; J2270; J2405; J2550; J2704; J3010; J7050; J7120; Q9963; S0020; S0028; U0002

== ENCOUNTER 2021-12-15 07:34 | Inpatient (IN) | payer MEDICARE ==
[2021-12-15 08:23] LABS: #Monocytes 0.6 thou/uL (0.11-0.59); %Basophils 0.2 % (0.0-1.0); %Eosinophils 0.4 % (0.0-10.0); %Lymphocytes 11.8 % (21.0-51.0); %Monocytes 7.4 % (0.0-10.0); %Neutrophils 80.2 % (42.0-75.0); Hemoglobin 14.6 g/dL (12.0-16.0); Mean Corpuscular HGB CONC 32.6 g/dL (32.0-36.0); Mean Corpuscular Hemoglobin 29.1 pg (27.0-31.0); Mean Corpuscular Volume 89.3 fL (78.0-98.0); Mean Platelet Volume 6.8 fL (7.4-10.4); Platelet Count 179 thou/uL (130-400); RBC Distribution Width 14.1 % (11.5-14.5); Red Blood Cell (RBC) Count 5.02 mill/uL (4.20-5.40); White Blood Cell (WBC) Count 8.7 thou/uL (4.8-10.8)
[2021-12-15] MEDS ORDERED: Morphine 4 MG/ML VIAL ONE (08:27)
[2021-12-15] MEDS ORDERED: Ondansetron PF 4 MG/2 ML Vial ONE (08:27)
[2021-12-15 08:53] LABS: ALT (SGPT) 22 U/L (8-55); AST (SGOT) 23 U/L (5-34); Alkaline Phosphatase 84 U/L (40-110); Anion Gap 14 mmol/L (10-20); BUN (Urea Nitrogen) 9 mg/dL (9.8-20.1); Bilirubin, Total 0.7 mg/dL (0.2-1.2); CK (CPK) 43 U/L (29-168); Calc. Creatinine Clearance 0 mL/min (70-130); Calcium 9.5 mg/dL (7.8-10.44); Carbon Dioxide 23 mmol/L (23-31); Chloride 101 mmol/L (98-107); Estimated GFR 86; Globulin 3.2 g/dL (2.4-3.5); Glucose 186 mg/dL (80-115); Lipase 7 U/L (8-78); Potassium 4.1 mmol/L (3.5-5.1); Protein, Total 7.2 g/dL (5.8-8.1); Sodium 134 mmol/L (136-145)
[2021-12-15] MEDS ORDERED: Benzocaine 20% Spray 60 ML CAN ONE (10:07)
[2021-12-15] MEDS ORDERED: Acetaminophen 325 MG TAB PO PRN (10:17)
[2021-12-15] MEDS ORDERED: Acetaminophen 650 MG Suppository PR PRN (10:17)
[2021-12-15] MEDS ORDERED: Ondansetron PF 4 MG/2 ML Vial IVP PRN (10:17)
[2021-12-15] MEDS ORDERED: Dextrose 50% Abboject 50 ML SYRINGE SLOW IVP PRN (10:31)
[2021-12-15] MEDS ORDERED: HumaLOG 300 UNITS/3 ML VIAL SC PRN (10:31)
[2021-12-15] MEDS ORDERED: Dextrose 5% in Water 1,000 ML IV PRN (10:31)
[2021-12-15] MEDS ORDERED: Iopamidol-370 76% 500 ML 1 ML ONE (10:45)
[2021-12-15 10:52] LABS: Bilirubin Negative (Negative); Blood, Urine Negative (Negative); Clarity Clear (Clear); Glucose, Urine (Dipstick) Normal (Negative); Ketone, Urine Negative (Negative); Leukocyte Negative Leu/uL (Negative); Nitrite Negative (Negative); Protein, Urine (Dipstick) Negative (Neg-Trace); Specific Gravity, Urine 1.025 (1.002-1.036); Urobilinogen Normal mg/dL (Less than 2); pH, Urine 6.5 (5.0-9.0)
[2021-12-15] MEDS: Ketorolac Tromethamine 30 MG/ML VIAL IVP PRN ×2 (12:16→17:55)
[2021-12-15] MEDS: Lactated Ringer's 1,000 ML IV SCH (12:18)
[2021-12-15 14:26] VITALS: BMI 43.8
[2021-12-15] MEDS: Famotidine/PF 20 mg/2ml Vial SLOW IVP SCH (21:01)
[2021-12-16] MEDS: Lactated Ringer's 1,000 ML IV SCH ×2 (03:08→14:50)
[2021-12-16] MEDS: Ketorolac Tromethamine 30 MG/ML VIAL IVP PRN ×2 (05:45→14:07)
[2021-12-16 06:14] LABS: #Eosinphils 0.1 thou/uL (0.0-0.7); #Lymphocytes 1.2 thou/uL (1.20-3.40); #Monocytes 0.5 thou/uL (0.11-0.59); #Neutrophils 4.7 thou/uL (1.40-6.50); %Basophils 0.1 % (0.0-1.0); %Eosinophils 1.2 % (0.0-10.0); %Lymphocytes 18.4 % (21.0-51.0); %Monocytes 8.2 % (0.0-10.0); %Neutrophils 72.1 % (42.0-75.0); Hemoglobin 12.5 g/dL (12.0-16.0); Mean Corpuscular HGB CONC 32.7 g/dL (32.0-36.0); Mean Corpuscular Hemoglobin 29.4 pg (27.0-31.0); Mean Platelet Volume 6.8 fL (7.4-10.4); Platelet Count 153 thou/uL (130-400); Red Blood Cell (RBC) Count 4.26 mill/uL (4.20-5.40); White Blood Cell (WBC) Count 6.5 thou/uL (4.8-10.8)
[2021-12-16 06:30] LABS: Anion Gap 9 mmol/L (10-20); BUN (Urea Nitrogen) 10 mg/dL (9.8-20.1); Calc. Creatinine Clearance 146 mL/min (70-130); Carbon Dioxide 29 mmol/L (23-31); Chloride 104 mmol/L (98-107); Estimated GFR 86; Glucose 132 mg/dL (80-115); Potassium 4.4 mmol/L (3.5-5.1); Sodium 138 mmol/L (136-145)
[2021-12-16] MEDS: Famotidine/PF 20 mg/2ml Vial SLOW IVP SCH ×2 (09:32→21:23)
[2021-12-17] MEDS: Lactated Ringer's 1,000 ML IV SCH (07:49)
[2021-12-17 15:50] VITALS: BP 118/75; TEMP 98.3
== END 2021-12-17 17:40 | disposition home or self-care (01) | DRG 394 ==
LOC: ERS 07:34 → SJJU 11:43
PROVIDERS: ADMIT Internal Medicine; ATTEND Internal Medicine
DX: K43.0 Incisional hernia with obstruction, without gangrene (principal); E87.1 Hypo-osmolality and hyponatremia; Z68.41 Body mass index [BMI] 40.0-44.9, adult; Z20.822 Contact with and (suspected) exposure to COVID-19; E86.0 Dehydration; N18.2 Chronic kidney disease, stage 2 (mild); E11.22 Type 2 diabetes mellitus with diabetic chronic kidney disease; E66.01 Morbid (severe) obesity due to excess calories; K76.0 Fatty (change of) liver, not elsewhere classified; Z53.20 Procedure and treatment not carried out because of patient's decision for unspecified reasons; Z88.0 Allergy status to penicillin; Z85.038 Personal history of other malignant neoplasm of large intestine; Z79.899 Other long term (current) drug therapy; Z79.84 Long term (current) use of oral hypoglycemic drugs; Z90.49 Acquired absence of other specified parts of digestive tract; Z90.710 Acquired absence of both cervix and uterus
CPT/HCPCS: 36415; 36416; 71045; 74177; 74250; 80048; 80053; 81003; 82550; 83690; 85025; 93005; 96374; 96375; J1885; J2270; J2405; J7120; Q9967; S0028; U0003; U0005

== ENCOUNTER 2023-03-17 04:15 | Emergency (ER) | payer MEDICARE ==
[2023-03-17 05:01] LABS: #Eosinphils 0.1 thou/uL (0.0-0.7); #Monocytes 0.9 thou/uL (0.11-0.59); #Neutrophils 6.8 thou/uL (1.40-6.50); %Basophils 0.1 % (0.0-1.0); %Eosinophils 0.9 % (0.0-10.0); %Lymphocytes 10.7 % (21.0-51.0); %Monocytes 9.7 % (0.0-10.0); %Neutrophils 78.1 % (42.0-75.0); Hematocrit 45.2 % (36.0-47.0); Hemoglobin 14.8 g/dL (12.0-16.0); Mean Corpuscular HGB CONC 32.7 g/dL (32.0-36.0); Mean Corpuscular Hemoglobin 28.9 pg (27.0-31.0); Mean Corpuscular Volume 88.3 fl (78.0-98.0); Platelet Count 177 10x3/uL (130-400); RBC Distribution Width 13.4 % (11.5-14.5); Red Blood Cell (RBC) Count 5.12 mill/uL (4.20-5.40); White Blood Cell (WBC) Count 8.8 10x3/uL (4.8-10.8)
[2023-03-17] MEDS ORDERED: Lidocaine 2% Viscous Solution 10 ML, Aluminum & Magnesium Hydroxide 30 ML SSW SCH (05:15)
[2023-03-17 05:30] LABS: Bacteria/HPF 4+ HPF (None Seen); Bilirubin Negative (Negative); Blood, Urine Negative (Negative); CAUTI Indications for Culture Pelvic or flank pain; Clarity Clear (Clear); Glucose, Urine (Dipstick) 500 mg/dL (Negative); Ketone, Urine Trace mg/dL (Negative); Leukocyte 250 Leu/uL (Negative); Nitrite Negative (Negative); Protein, Urine (Dipstick) 20 mg/dL (Neg-Trace); RBC/HPF 0-3 HPF (0-3); Renal Epithelial 0-3 HPF (None Seen); Specific Gravity, Urine 1.023 (1.002-1.036); Squamous Epithelial 0-3 HPF (0-3); Urobilinogen Normal mg/dL (Less than 2); WBC/HPF 21-50 HPF (0-3); pH, Urine 5.5 (5.0-9.0)
[2023-03-17 05:32] LABS: Urine Culture Reflex Yes Yes
[2023-03-17 05:33] LABS: Troponin I Less than 0.010 ng/mL (< 0.028)
[2023-03-17 05:42] LABS: Albumin 4.2 g/dL (3.4-4.8)
[2023-03-17 05:43] LABS: Calcium 9.3 mg/dL (7.8-10.44); Chloride 101 mmol/L (98-107); Potassium 4.2 mmol/L (3.5-5.1); Sodium 137 mmol/L (136-145)
[2023-03-17 05:44] LABS: Globulin 3.5 g/dL (2.4-3.5); Glucose 261 mg/dL (80-115); Protein, Total 7.7 g/dL (5.8-8.1)
[2023-03-17 05:46] LABS: Anion Gap 17 mmol/L (10-20); Bilirubin, Total 0.6 mg/dL (0.2-1.2); Carbon Dioxide 23 mmol/L (23-31)
[2023-03-17 05:47] LABS: Alkaline Phosphatase 104 U/L (40-110); Calc. Creatinine Clearance 0 mL/min (70-130); Estimated GFR 80
[2023-03-17 05:48] LABS: BUN (Urea Nitrogen) 11 mg/dL (9.8-20.1)
[2023-03-17 05:49] LABS: AST (SGOT) 34 U/L (5-34)
[2023-03-17 05:50] LABS: ALT (SGPT) 29 U/L (8-55); Lipase 7 U/L (8-78)
[2023-03-17] MEDS ORDERED: Nitrofurantoin Monohyd/M-Cryst 100 MG CAP ONE (06:38)
[2023-03-17 07:57] LABS: HBSAB Concentration Less than 8.00 mIU/mL; HBSAg Index 0.22 S/CO (0-0.99); Hep B Core Total Ab Non-Reactive (NonReactive); Hep B Core Total Index 0.09 S/CO (0-0.79); Hep B Surf AB Non-Reactive (NonReactive); Hep B Surf Ag Non-Reactive S/CO (NonReactive); Hep C IgG Ab Non-Reactive S/CO (NonReactive); Hep C Index 0.03 S/CO (0-0.79)
== END 2023-03-17 06:41 | disposition home or self-care (01) ==
LOC: ERS 04:15
DX: K29.00 Acute gastritis without bleeding (principal); N39.0 Urinary tract infection, site not specified; E11.9 Type 2 diabetes mellitus without complications
CPT/HCPCS: 36415; 80053; 81001; 83690; 84484; 85025; 86704; 87077; 87086; 87186; 93005; 94760

== ENCOUNTER 2024-03-06 10:05 | Emergency (ER) | payer MEDICARE ==
[2024-03-06 11:01] LABS: #Basophils Less than 0.03 10x3/uL (0.0-0.2); %Basophils 0.3 % (0.0-1.0); %Eosinophils 1.5 % (0.0-10.0); %Lymphocytes 16.7 % (21.0-51.0); %Monocytes 7.7 % (0.0-10.0); %Neutrophils 73.3 % (42.0-75.0); Hematocrit 41.4 % (36.0-47.0); Hemoglobin 13.9 g/dL (12.0-16.0); Mean Corpuscular HGB CONC 33.6 g/dL (32.0-36.0); Mean Corpuscular Hemoglobin 28.5 pg (27.0-31.0); Mean Platelet Volume 8.6 fL (7.4-10.4); Platelet Count 196 10x3/uL (130-400); RBC Distribution Width 13.2 % (11.5-14.5); Red Blood Cell (RBC) Count 4.87 mill/uL (4.20-5.40)
[2024-03-06 11:20] LABS: ALT (SGPT) 16 U/L (8-55); AST (SGOT) 18 U/L (5-34); Albumin 3.5 g/dL (3.4-4.8); Alkaline Phosphatase 111 U/L (40-110); Anion Gap 16 mmol/L (10-20); BUN (Urea Nitrogen) 9 mg/dL (9.8-20.1); Bilirubin, Total 0.2 mg/dL (0.2-1.2); Calc. Creatinine Clearance 0 mL/min (70-130); Calcium 9.6 mg/dL (7.8-10.44); Carbon Dioxide 24 mmol/L (23-31); Chloride 103 mmol/L (98-107); Estimated GFR 71; Globulin 4.1 g/dL (2.4-3.5); Glucose 194 mg/dL (80-115); Lipase 14 U/L (8-78); Protein, Total 7.6 g/dL (5.8-8.1); Sodium 139 mmol/L (136-145)
[2024-03-06 12:38] LABS: Bacteria/HPF None Seen HPF (None Seen); Bilirubin Negative (Negative); Blood, Urine Negative (Negative); CAUTI Indications for Culture Pelvic or flank pain; Clarity Clear (Clear); Glucose, Urine (Dipstick) 500 mg/dL (Negative); Ketone, Urine Negative (Negative); Leukocyte Negative Leu/uL (Negative); Nitrite Negative (Negative); Protein, Urine (Dipstick) Negative (Neg-Trace); RBC/HPF 0-3 HPF (0-3); Specific Gravity, Urine 1.016 (1.002-1.036); Squamous Epithelial 0-3 HPF (0-3); Urobilinogen Normal mg/dL (Less than 2); WBC/HPF 0-3 HPF (0-3); pH, Urine 5.5 (5.0-9.0)
[2024-03-06 12:40] LABS: Urine Culture Reflex No No
== END 2024-03-06 13:00 | disposition home or self-care (01) ==
LOC: ERS 10:05
DX: Z48.01 Encounter for change or removal of surgical wound dressing (principal); E11.9 Type 2 diabetes mellitus without complications; Z79.84 Long term (current) use of oral hypoglycemic drugs
CPT/HCPCS: 74177; 80053; 81001; 83605; 83690; 85025

== ENCOUNTER 2024-10-22 23:49 | Emergency (ER) | payer MEDICARE ==
[2024-10-23] MEDS ORDERED: Ketorolac Tromethamine 30 MG (1 mL) VIAL ONE (02:03)
== END 2024-10-23 02:13 | disposition home or self-care (01) ==
LOC: ERS 23:49
DX: S50.02XA Contusion of left elbow, initial encounter (principal); S00.83XA Contusion of other part of head, initial encounter; S80.01XA Contusion of right knee, initial encounter; E11.9 Type 2 diabetes mellitus without complications; E66.9 Obesity, unspecified; Z55.6 Problems related to health literacy; W01.198A Fall on same level from slipping, tripping and stumbling with subsequent striking against other object, initial encounter
CPT/HCPCS: 70450; 73090; 73564; J1885; 96372